=== PATIENT | female | born 1965 | race Caucasian/White ===

== ENCOUNTER → 2016-10-05 | Outpatient (CLI) | payer OTHER | LOC: EMI 07:17 | DX: G43.909 Migraine, unspecified, not intractable, without status migrainosus (principal); R93.0 Abnormal findings on diagnostic imaging of skull and head, not elsewhere classified | CPT/HCPCS: 70551 ==

== ENCOUNTER → 2021-01-09 | Outpatient (CLI) | payer MEDICARE | LOC: EXRD 10:09 | DX: E04.9 Nontoxic goiter, unspecified (principal); R10.9 Unspecified abdominal pain; K76.0 Fatty (change of) liver, not elsewhere classified; Z90.49 Acquired absence of other specified parts of digestive tract | CPT/HCPCS: 76536; 76700 ==

== ENCOUNTER 2021-03-27 13:57 | Emergency (ER) | payer MEDICARE ==
[2021-03-27] MEDS ORDERED: CEPHALEXIN500 MG PO (14:44)
== END 2021-03-27 14:52 | disposition home or self-care (01) ==
LOC: ER1 13:57
DX: S61.412A Laceration without foreign body of left hand, initial encounter (principal); Z90.49 Acquired absence of other specified parts of digestive tract; Z88.6 Allergy status to analgesic agent; Z23 Encounter for immunization; W26.0XXA Contact with knife, initial encounter
CPT/HCPCS: 12002; 90471; 90715; 99282